=== PATIENT | female | born 1950 | race Caucasian/White ===

== ENCOUNTER 2018-04-30 09:24 | Emergency (ER) | payer MEDICARE, OTHER ==
[~2018-04-30] VITALS: Ht 152.4 cm; Wt 71.5 kg
[~2018-04-30 09:24] MED LIST: ALBU0.63 NEB; FLUT1AER INH; HYDR1TAB12 PO; IPRA4AER INH; TEMA30CA6 PO
[2018-04-30 09:28] VITALS: BP 115/76
== END 2018-04-30 11:12 | disposition home or self-care (01) ==
LOC: ED 10:20
DX: J01.10 Acute frontal sinusitis, unspecified (principal)
CPT/HCPCS: 71046; 99284

== ENCOUNTER 2018-05-17 19:21 | Emergency (ER) | payer MEDICARE, OTHER ==
[~2018-05-17] VITALS: Ht 149.9 cm; Wt 80.0 kg
[2018-05-17 19:25] VITALS: BP 112/77
[2018-05-17] MEDS ORDERED: DULO20CA45 PO (19:59)
[2018-05-17] MEDS ORDERED: HYDROcodone/APAP 5/325 TABLET ONE (20:05)
[2018-05-17] MEDS ORDERED: HYDROcodone/APAP 5/325 TABLET PO ONE (20:30)
== END 2018-05-17 20:20 | disposition home or self-care (01) ==
LOC: ED 20:10
DX: M25.572 Pain in left ankle and joints of left foot (principal)
CPT/HCPCS: 99284

== ENCOUNTER 2018-07-22 09:32 | Emergency (ER) | payer MEDICARE ==
[~2018-07-22] VITALS: Ht 149.9 cm; Wt 72.4 kg
[~2018-07-22 09:32] MED LIST changes: +DULO20CA45 PO
[2018-07-22 09:41] VITALS: BP 112/73
== END 2018-07-22 10:17 | disposition home or self-care (01) ==
LOC: ED 09:50
DX: J45.21 Mild intermittent asthma with (acute) exacerbation (principal); Z90.49 Acquired absence of other specified parts of digestive tract
CPT/HCPCS: 99283

== ENCOUNTER 2018-07-24 08:13 | Emergency (ER) | payer MEDICARE ==
[~2018-07-24] VITALS: Ht 149.9 cm; Wt 71.9 kg
[2018-07-24] MEDS ORDERED: SODIUM CHLORIDE 0.9% 1,000 ML IV ONE (09:04)
[2018-07-24] MEDS ORDERED: ALBUTEROL/IPRATROPIUM 2.5MG/0.5MG, 3 ML ONE ×3 (09:16→09:24)
[2018-07-24] MEDS ORDERED: methylPREDNISolone SOD SUCC 125 MG/2 ML IVP ONE (09:30)
[2018-07-24] MEDS ORDERED: ALBUTEROL/IPRATROPIUM 2.5MG/0.5MG, 3 ML NPPB SCH (09:30)
[2018-07-24] MEDS ORDERED: methylPREDNISolone SOD SUCC 125 MG/2 ML ONE (09:32)
[2018-07-24 09:38] VITALS: BP 126/69
[2018-07-24 09:38] LABS: BASOPHILS # (AUTO) 0.02 x10^3/uL (0-0.1); BASOPHILS % (AUTO) 0 % (0-1); EOSINOPHILS # (AUTO) 0.02 x10^3/uL (0-0.4); EOSINOPHILS % (AUTO) 0 % (1-7); LYMPHOCYTES # (AUTO) 2.67 x10^3/uL (1-3.4); LYMPHOCYTES % (AUTO) 26 % (22-44); MD NO; MEAN CORPUSCULAR VOLUME 88.3 fL (80-100); MEAN PLATELET VOLUME 7.2 fL (7.4-10.4); MONOCYTES # (AUTO) 0.91 x10^3/uL (0.2-0.8); MONOCYTES % (AUTO) 9 % (2-9); NEUTROPHILS % (AUTO) 64 % (42-75); PLATELET COUNT 279 x10^3/uL (130-400); RED BLOOD COUNT 4.67 x10^6/uL (3.82-5.3); RED CELL DISTRIBUTION WIDTH 12.7 % (9.6-15.2)
[2018-07-24 09:50] LABS: ALBUMIN 3.7 g/dL (3.4-5.0); ANION GAP 9 mmol/L (5-15); CALCIUM 8.2 mg/dL (8.5-10.1); CHLORIDE 109 mmol/L (98-107); CREATININE 0.62 mg/dL (0.55-1.02)
== END 2018-07-24 10:37 | disposition home or self-care (01) ==
LOC: ED 10:11
DX: J45.41 Moderate persistent asthma with (acute) exacerbation (principal); J00 Acute nasopharyngitis [common cold]
CPT/HCPCS: 36415; 71046; 80048; 82040; 83605; 85025; 94640; 96374; 99285; J2930; J7030; J7620

== ENCOUNTER 2019-02-13 09:15 | Emergency (ER) | payer MEDICARE ==
[~2019-02-13] VITALS: Ht 149.9 cm; Wt 73.0 kg
[~2019-02-13 09:15] MED LIST changes: -HYDR1TAB12 PO; +HYDR1TAB13 PO
[2019-02-13 09:18] VITALS: BP 134/80
--- NOTE | 2019-02-13 09:35 | NUR ---
FIRST CONTACT WITH PT. PT STATES "I HAVE A COUGH AND MY ASTHMA IS WAY WORSE. MY DR GAVE ME ZYTHROMYCIN AND MEDROL PACK. IT'S BEEN 4 DAYS." PT C/O NASAL CONGESTION WELL. PT'S AOX4. RESPS EVEN AND UNLABORED. PT DENIES N/V/D AT THIS TIME. PA AT BEDSIDE TO ASSESS NOW.
--- NOTE | 2019-02-13 09:41 | NUR ---
PT IN XRAY NOW.
--- NOTE | 2019-02-13 10:08 | NUR ---
PT GIVEN DC INSTRUCTIONS AND SCRIPTS. PT EDUCATED REGARDING DC MEDICATIONS. PT AMB TO DC WITH STEADY GAIT. NO ACUTE DISTRESS AT DC.
== END 2019-02-13 10:08 | disposition home or self-care (01) ==
LOC: ED 10:02
DX: J00 Acute nasopharyngitis [common cold] (principal); G89.29 Other chronic pain; M54.2 Cervicalgia; J44.9 Chronic obstructive pulmonary disease, unspecified; Z87.891 Personal history of nicotine dependence
CPT/HCPCS: 71046; 99283

== ENCOUNTER 2021-07-03 13:27 | Outpatient (CLI) | payer MEDICARE | END 2021-07-03 23:59 | disposition home or self-care (01) | LOC: CFH 13:27 | PROVIDERS: ATTEND Physician Assistant | DX: Z12.31 Encounter for screening mammogram for malignant neoplasm of breast (principal) | CPT/HCPCS: 77063; 77067 ==